=== PATIENT | male | born 1950 | race Caucasian/White ===

== ENCOUNTER 2021-12-17 13:26 | Emergency (ER) | payer OTHER ==
[2021-12-17] MEDS ORDERED: Acetaminophen 325 MG TAB ONE (14:34)
== END 2021-12-17 15:45 ==
LOC: NAV ERS 13:26
DX: S30.0XXA Contusion of lower back and pelvis, initial encounter (principal); W01.0XXA Fall on same level from slipping, tripping and stumbling without subsequent striking against object, initial encounter
CPT/HCPCS: 72125; 72131; 72192; 94760